=== PATIENT | female | born 1975 | race Caucasian/White ===

== ENCOUNTER 2023-02-23 07:13 | Day surgery (SDC) | payer MEDICARE, OTHER, MEDICAID ==
[2023-02-23] MEDS ORDERED: Sodium Chloride 0.9% 1,000 ML IV SCH (08:00)
[2023-02-23] MEDS ORDERED: fentaNYL 50 MCG/ML SDV ONE (08:10)
[2023-02-23] MEDS ORDERED: Propofol 200 MG/20 ML SDV ONE (08:10)
[2023-02-23] MEDS ORDERED: Atropine 0.4 MG/ML SDV ONE (08:55)
== END 2023-02-23 10:32 | disposition home or self-care (01) ==
LOC: JP.SDS 07:13
PROVIDERS: ATTEND Surgery
DX: Z12.11 Encounter for screening for malignant neoplasm of colon (principal); K22.10 Ulcer of esophagus without bleeding
CPT/HCPCS: 43239; G0121; J0461; J2704; J3010; J7030

== ENCOUNTER 2023-09-17 02:42 | Emergency (ER) | payer MEDICARE, OTHER, MEDICAID ==
[2023-09-17 03:36] LABS: BASOPHILS PERCENT AUTO 0.2 % (0.1-1.3); HEMATOCRIT 33.9 % (34.3-46.0); IMMATURE GRAN ABSOLUTE AUTO 0.03 K/uL (0.00-0.23); IMMATURE GRAN PERCENT AUTO 0.7 % (0.0-0.7); LYMPHOCYTES ABSOLUTE AUTO 0.36 K/uL (0.8-3.3); LYMPHOCYTES PERCENT AUTO 7.9 % (11.4-47.7); MEAN CORPUSCULAR HEMOGLOBIN 35.9 pg (31.6-35.5); MEAN CORPUSCULAR HGB CONC 35.4 g/dL (31.6-35.5); MEAN CORPUSCULAR VOLUME 101.5 fL (81.4-99.0); MONOCYTES ABSOLUTE AUTO 0.06 K/uL (0.20-0.90); MONOCYTES PERCENT AUTO 1.3 % (3.3-12.6); NEUTROPHILS ABSOLUTE AUTO 4.12 K/uL (1.0-7.6); NEUTROPHILS PERCENT AUTO 89.9 % (40.0-78.1); PLATELET COUNT,PLT 88 K/uL (130-375); RED BLOOD CELL COUNT 3.34 M/uL (3.77-5.24); WHITE BLOOD CELL COUNT,WBC 4.6 K/uL (3.2-11.0)
[2023-09-17 03:42] LABS: LACTIC ACID 1.1 mmol/L (0.7-2.1)
[2023-09-17] MEDS: Acetaminophen 500 MG Tab PO ONE (03:43)
[2023-09-17] MEDS: Ondansetron 4 MG Tab.DIS PO ONE (03:50)
[2023-09-17 03:53] LABS: BASOPHILS ABSOLUTE AUTO 0.01 K/uL (0.00-0.10)
[2023-09-17 04:10] LABS: A/G RATIO 0.8 (1.2-2.2); ALANINE AMINOTRANSFERASE,ALT 83 U/L (12-78); ALBUMIN 2.7 g/dL (3.4-5.0); ALKALINE PHOSPHATASE 87 U/L (46-116); ASPARTATE AMNIOTRANSFERASE,AST 82 U/L (15-37); BILIRUBIN TOTAL 0.3 mg/dL (0.2-1.0); BLOOD UREA NITROGEN,BUN 13 mg/dL (7-18); C-REACTIVE PROTEIN 10.97 mg/dL (<0.50); CALCIUM 7.5 mg/dL (8.5-10.1); CARBON DIOXIDE,CO2 26 mmol/L (21-32); EST CRCL DRUG DOSING (CG) 48.34 mL/min; ESTIMATED GFR 69 mL/min (>60); GLUCOSE RANDOM 119 mg/dL (74-106); PROTEIN TOTAL,TP 6.1 g/dL (6.4-8.2); SODIUM,NA 135 mmol/L (140-148)
[2023-09-17 05:00] LABS: APPEARANCE,URINE CLEAR (CLEAR); BILIRUBIN,URINE NEGATIVE (NEGATIVE); COLOR,URINE YELLOW (YELLOW); GLUCOSE,URINE NEGATIVE (NEGATIVE); KETONES,URINE NEGATIVE (NEGATIVE); LEUKOCYTE ESTERASE,URINE NEGATIVE (NEGATIVE); NITRITE,URINE NEGATIVE (NEGATIVE); OCCULT BLOOD,URINE NEGATIVE (NEGATIVE); PROTEIN,URINE 100 mg/dL (NEGATIVE); UROBILINOGEN,URINE 0.2 EU/dL (0.2-1.0)
[2023-09-17 05:04] LABS: AMORPHOUS SEDIMENT,URINE FEW; BACTERIA,URINE FEW; EPITHELIAL CELLS,URINE RARE; MUCUS,URINE NOT SEEN; RBC,URINE 0-5 (0-5); WBC,URINE 0-5 (0-5)
== END 2023-09-17 05:25 | disposition home or self-care (01) ==
LOC: JP.ED 02:42
DX: R11.2 Nausea with vomiting, unspecified (principal); E78.00 Pure hypercholesterolemia, unspecified; E03.9 Hypothyroidism, unspecified; Z79.899 Other long term (current) drug therapy
CPT/HCPCS: 36415; 71045; 80053; 81001; 83605; 83690; 84484; 85025; 86140; 93005; 99284; A9270; Q0162

== ENCOUNTER 2023-09-19 09:13 | Emergency (ER) | payer MEDICARE, OTHER, MEDICAID ==
[2023-09-19] MEDS: Sodium Chloride 0.9% 1,000 ML IV SCH ×2 (09:56→11:18)
[2023-09-19] MEDS: Meropenem 1 GM in Sodium Chloride 0.9% 100 ML IV ONE (10:21)
[2023-09-19 10:30] LABS: HEMATOCRIT 26.4 % (34.3-46.0); HEMOGLOBIN 9.5 g/dL (11.2-15.5); MEAN CORPUSCULAR HEMOGLOBIN 35.4 pg (31.6-35.5); MEAN CORPUSCULAR VOLUME 98.5 fL (81.4-99.0); RED BLOOD CELL COUNT 2.68 M/uL (3.77-5.24); WHITE BLOOD CELL COUNT,WBC 1.2 K/uL (3.2-11.0)
[2023-09-19 10:37] LABS: APPEARANCE,URINE CLEAR (CLEAR); BILIRUBIN,URINE NEGATIVE (NEGATIVE); COLOR,URINE YELLOW (YELLOW); GLUCOSE,URINE NEGATIVE (NEGATIVE); KETONES,URINE NEGATIVE (NEGATIVE); LEUKOCYTE ESTERASE,URINE NEGATIVE (NEGATIVE); NITRITE,URINE NEGATIVE (NEGATIVE); OCCULT BLOOD,URINE TRACE-INTACT (NEGATIVE); PH,URINE 5.5 (5.0-8.0); PROTEIN,URINE 100 mg/dL (NEGATIVE); UROBILINOGEN,URINE 0.2 EU/dL (0.2-1.0)
[2023-09-19 10:43] LABS: RBC,URINE 0-5 (0-5)
[2023-09-19 10:44] LABS: AMORPHOUS SEDIMENT,URINE FEW; BACTERIA,URINE FEW; EPITHELIAL CELLS,URINE RARE; MUCUS,URINE NOT SEEN; WBC,URINE NOT SEEN (0-5)
[2023-09-19 10:52] LABS: A/G RATIO 0.8 (1.2-2.2); ALANINE AMINOTRANSFERASE,ALT 79 U/L (12-78); ALBUMIN 2.1 g/dL (3.4-5.0); ALKALINE PHOSPHATASE 147 U/L (46-116); ANION GAP 13.6 mmol/L (5.0-14.0); ASPARTATE AMNIOTRANSFERASE,AST 159 U/L (15-37); BILIRUBIN TOTAL 0.8 mg/dL (0.2-1.0); BLOOD UREA NITROGEN,BUN 27 mg/dL (7-18); CARBON DIOXIDE,CO2 22 mmol/L (21-32); CHLORIDE,CL 101 mmol/L (100-108); CREATININE 2.6 mg/dL (0.6-1.0); EST CRCL DRUG DOSING (CG) 18.59 mL/min; ESTIMATED GFR 22 mL/min (>60); GLUCOSE RANDOM 148 mg/dL (74-106); POTASSIUM,K 3.6 mmol/L (3.6-5.2); PROTEIN TOTAL,TP 4.8 g/dL (6.4-8.2); SODIUM,NA 133 mmol/L (140-148)
[2023-09-19 10:55] LABS: CALCIUM 6.4 mg/dL (8.5-10.1)
[2023-09-19 11:12] LABS: CORONAVIRUS COVID-19 NAA NEGATIVE (NEGATIVE); INFLUENZA A NAA NEGATIVE (NEGATIVE); INFLUENZA B NAA NEGATIVE (NEGATIVE); RESPIRATORY SYNCYTIAL VIR NAA NEGATIVE (NEGATIVE)
[2023-09-19 11:18] LABS: PLATELET COUNT,PLT 21 K/uL (130-375)
[2023-09-19 11:21] LABS: LYMPHOCYTES ABSOLUTE MAN 0.05 K/uL (0.8-3.3); LYMPHOCYTES PERCENT MAN 4 % (24-44); NEUTROPHILS ABSOLUTE MAN 1.15 K/uL (1.0-7.6); SEG NEUTROPHILS PERCENT MAN 96 % (36-66)
[2023-09-19 11:23] LABS: LYME AB IgG Negative (Negative); LYME AB IgM Negative (Negative)
[2023-09-19] MEDS: Azithromycin 500 MG in Sodium Chloride 0.9% 250 ML IV SCH (12:23)
[2023-09-19] MEDS: Calcium Gluconate 2 GM in Sodium Chloride 0.9% 100 ML IV ONE (12:51)
[2023-09-19] MEDS: Norepinephrine Bit/D5W Premix 4 MG in Premix Bag 1 BAG IV SCH (13:08)
[2023-09-19 13:57] LABS: BASE EXCESS ARTERIAL -8.4 mm/L; BICARBONATE,ARTERIAL 15.7 mmol/L (22.0-26.0); OXYHEMOGLOBIN 91.2 %; PCO2 ARTERIAL 28.8 mmHg (35.0-42.0); PO2 ARTERIAL 65.7 mmHg (75.0-100.0); TOTAL HEMOGLOBIN 9.3 g/dL (12.0-16.0)
[2023-09-19] MEDS: Hydrocortisone Sodium Succinate 100 MG/2 ML SDV IVPUSH SCH (16:22)
== END 2023-09-19 16:45 ==
LOC: JP.ED 09:13
DX: A41.9 Sepsis, unspecified organism (principal); N17.9 Acute kidney failure, unspecified; J18.9 Pneumonia, unspecified organism; R11.2 Nausea with vomiting, unspecified; E78.00 Pure hypercholesterolemia, unspecified; E03.9 Hypothyroidism, unspecified; Z79.890 Hormone replacement therapy; Z79.899 Other long term (current) drug therapy
CPT/HCPCS: 0241U; 36415; 36600; 71045; 71250; 74176; 80053; 81001; 82330; 82803; 83605; 84145; 85025; 85049; 86618; 87040; 96361; 96365; 96366; 96367; 96375; 99285; J0456; J0612; J1720; J2185; J3490; J7030; J7050